=== PATIENT | male | born 1995 | race Two or more races ===

== ENCOUNTER 2020-02-21 20:32 | Emergency (ER) | payer OTHER ==
[~2020-02-21] VITALS: Ht 162.6 cm; Wt 64.0 kg
[2020-02-21 21:07] VITALS: BP 133/72
[2020-02-21] MEDS ORDERED: ACETAMINOPHEN 325MG TABLET PO ONE (21:30)
== END 2020-02-21 23:25 | disposition home or self-care (01) ==
LOC: ER 20:32
DX: J02.9 Acute pharyngitis, unspecified (principal); L53.9 Erythematous condition, unspecified
CPT/HCPCS: 71045; 99283